=== PATIENT | female | born 1985 | race Two or more races ===

== ENCOUNTER 2021-04-28 06:49 | Day surgery (SDC) | payer OTHER | END 2021-04-28 13:15 | disposition home or self-care (01) | LOC: AMB-ENDOS 06:49 | PROVIDERS: ATTEND Surgery | DX: K29.60 Other gastritis without bleeding (principal); K44.9 Diaphragmatic hernia without obstruction or gangrene; Z20.822 Contact with and (suspected) exposure to COVID-19 ==